=== PATIENT | female | born 1955 | race Caucasian/White ===

== ENCOUNTER → 2017-01-23 | Outpatient (CLI) | payer MEDICARE, MEDICAID ==
[~2017-01-23] MED LIST: ACHD5005 PO; ALN70T PO; ALPR1T PO; CHOLESTEROL MED; FLC100T1 PO; HYDR-2889 PO; HYDR1TAB66 PO; IMITREX; METO25TA2 PO; NYST1POW15 TOP; OXYC-272 PO; PRAV80TA2 PO; TOPROL; [UNRECOGNIZED DRUG - REMARK]
--- NOTE | 2017-01-23 19:30 | Diagnostic Imaging Report ---
INDICATION: Bladder prolapse and pain. EXAMINATION: Pelvic sonography was performed with transabdominal and transvaginal views. FINDINGS: The uterus was surgically absent. Neither ovary could be visualized. There is no free fluid. IMPRESSION: Uterus was surgically absent, not neither ovary was visualized, surgical history is unclear. There is no free fluid. Dictated by: Dictated on workstation # [id number]
== END ==
LOC: RAD 16:09
PROVIDERS: ATTEND Obstetrics & Gynecology
DX: Z01.411 Encounter for gynecological examination (general) (routine) with abnormal findings (principal)
CPT/HCPCS: 76830; 76856

== ENCOUNTER 2017-05-22 14:38 | Emergency (ER) | payer MEDICARE, MEDICAID ==
[~2017-05-22] VITALS: Ht 175.3 cm; Wt 67.6 kg
[~2017-05-22 14:38] MED LIST changes: -METO-270; -OXYB5TAB9
--- OUTSIDE RECORDS SUMMARY | 2017-05-22 14:54 | XMS REPORT ---
Author Author YARI BUI Organization [employer] Address Unknown Phone Unavailable Care Team Providers Care Mainspring Fabrication Supervisor Name Role Phone YARI BUI CP Unavailable Allergies, Adverse Reactions, Alerts Substance Reaction Event Type N.K.D.A. Info Not Available Non Drug Allergy Problems Problem Type Condition Code Onset Dates Condition Status Assessment Dental examination Z01.20 Active Medications Medication Code System Code Instructions Start Date End Date Status Dosage Fosamax [facility] [id number] not defined Procedures Procedure Coding System Code Date Billing Notes on claim CPT-4 EC109 February 21, 2016 AMALGAM-TWO SURFACES PRIMARY/PERM CPT-4 D2150 February 21, 2016 Vital Signs Date/Time: February 21, 2016 Blood Pressure Diastolic 95 mmHg Blood Pressure Systolic 142 mmHg Results No Known Results Summary Purpose [employer] Submission
--- OUTSIDE RECORDS SUMMARY | 2017-05-22 14:54 | XMS REPORT ---
Author Author DORON KU [facility] Address Unknown Care Team Providers Care [employer] Media Program Director Name Role Phone DORON KU Unavailable PROBLEMS Unknown Problems ALLERGIES No Known Allergies SOCIAL HISTORY Never Assessed PLAN OF CARE Activity Details Follow Up prn Reason:prophy VITAL SIGNS Blood pressure systolic 138 mmHg 2016-09-25 Blood pressure diastolic 82 mmHg 2016-09-25 MEDICATIONS Medication Instructions Dosage Frequency Start Date End Date Duration Status Etodolac Active Cephalexin Active Xanax Active Lamisil Active Hydrocodone-Acetaminophen Active Betamethasone Active Pravastatin Sodium Active Fosamax Active Metoprolol Tartrate Active Lortab 5 Active RESULTS No Results PROCEDURES Procedure Date Ordered Result Body Site Dental no charge Sep 25, 2016 IMMUNIZATIONS No Known Immunizations MEDICAL (GENERAL) HISTORY Type Description Date Medical History high blood pressure Medical History chlosteral Medical History migraines
--- OUTSIDE RECORDS SUMMARY | 2017-05-22 14:54 | XMS REPORT ---
Author Author RAMO JIANG Organization [employer] Address Unknown Phone Unavailable Care Team Providers Care Bean Viner Name Role Phone RAMO JIANG CP Unavailable Allergies No Known Allergies Problems Problem Type Condition ICD-9 Code Onset Dates Condition Status Assessment Dental examination V72.2 Active Medications No Known Medications Procedures Procedure Coding System Code Date BITEWINGS - FOUR FILMS CPT-4 D0274 Apr 10, 2015 Periodontal maint procedures CPT-4 D4910 Apr 10, 2015 PERIODIC ORAL EXAMINATION CPT-4 D0120 Apr 10, 2015 Results No Known Results Summary Purpose [employer] Submission
--- OUTSIDE RECORDS SUMMARY | 2017-05-22 14:54 | XMS REPORT ---
Author Author DORON KU [facility] Address Unknown Care Team Providers Care Academic Intern Name Role Phone KINGS DORON Unavailable PROBLEMS Unknown Problems ALLERGIES Substance Reaction Event Type Date Status N.K.D.A. Unknown Non Drug Allergy Jun, Unknown SOCIAL HISTORY No smoking Hx information available PLAN OF CARE Activity Details Follow Up prn Reason:TE #16 or prophy VITAL SIGNS Blood pressure systolic 102 mmHg 2016-07-16 Blood pressure diastolic 72 mmHg 2016-07-16 MEDICATIONS Medication Instructions Dosage Frequency Start Date End Date Duration Status Fosamax Active Xanax Active Hydrocodone-Acetaminophen Active Pravastatin Sodium Active Etodolac Active Lamisil Active Lortab 5 Active Cephalexin Active Metoprolol Tartrate Active Betamethasone Active RESULTS No Results PROCEDURES Procedure Date Ordered Related Diagnosis Body Site LTD ORAL EVALUATION - PROBLEM FOCUS Jul 16, 2016 BITEWINGS - FOUR FILMS Jul 16, 2016 AMALGAM-TWO SURFACES PRIMARY/PERM Jul 16, 2016 IMMUNIZATIONS No Known Immunizations
--- OUTSIDE RECORDS SUMMARY | 2017-05-22 14:54 | XMS REPORT ---
Author Author YARI Jacobs [facility] Address [address] [place] [address] Care Team Providers Care Principal Technical Architect Name Role Phone YARI Jacobs Unavailable PROBLEMS Unknown Problems ALLERGIES No Known Allergies SOCIAL HISTORY No smoking Hx information available PLAN OF CARE VITAL SIGNS MEDICATIONS No Known Medications RESULTS No Results PROCEDURES Procedure Date Ordered Related Diagnosis Body Site Dental Prepay for Future Services Aug 18, 2016 IMMUNIZATIONS No Known Immunizations
--- OUTSIDE RECORDS SUMMARY | 2017-05-22 14:55 | XMS REPORT | Continuity of Care Document ---
Author Author [facility] Organization [facility] Address Unknown Phone Unavailable Allergies Active Description Code Type Severity Reaction Onset Reported/Identified Relationship to Patient Clinical Status Yes No Known Drug Allergies [id number] Drug Allergy Unknown N/ A 05/03/2010 Medications Problems Date Dx Coded Attending Type Code Diagnosis Diagnosed By 06/29/2012 Ot 454.0 LEG VARICOSITY W ULCER 06/29/2012 Ot V58.69 OTH MED,LT,CURRENT USE 04/13/2013 SANTY LEMUS MD Ot 454.0 LEG VARICOSITY W ULCER 11/12/2013 SANTY LEMUS MD Ot 454.0 LEG VARICOSITY W ULCER 03/11/2014 REILLY GONZALEZ DEICER INSPECTOR ELECTRIC Ot 459.81 VENOUS INSUFFICIENCY NOS 03/11/2014 REILLY GONZALEZ DEICER INSPECTOR ELECTRIC Ot 707.9 CHRONIC SKIN ULCER NOS 07/07/2014 SANTY LEMUS MD Ot 454.0 07/29/2014 SANTY LEMUS MD Ot 454.0 LEG VARICOSITY W ULCER 12/21/2014 COLTHARP DO, RUBEN A Ot 117.9 12/21/2014 COLTHARP DO, RUBEN A Ot 305.1 12/21/2014 COLTHARP DO, RUBEN A Ot 457.1 12/26/2014 COLTHARP DO, RUBEN A Ot 117.9 MYCOSES NEC NOS 12/26/2014 COLTHARP DO, RUBEN A Ot 305.1 TOBACCO USE DISORDER 12/26/2014 COLTHARP DO, RUBEN A Ot 457.1 OTHER LYMPHEDEMA 01/24/2017 HERSON HASSAN DO Ot Z01.411 ENCNTR FOR RENTAL COUNTER CLERK EXAM (GENERAL) (ROUTINE ) 01/24/2017 HERSON HASSAN DO Ot Z01.411 ENCNTR FOR RENTAL COUNTER CLERK EXAM (GENERAL) (ROUTINE ) 01/24/2017 HERSON HASSAN DO Ot Z01.411 ENCNTR FOR RENTAL COUNTER CLERK EXAM (GENERAL) (ROUTINE ) 01/24/2017 HERSON HASSAN DO Ot Z01.411 ENCNTR FOR RENTAL COUNTER CLERK EXAM (GENERAL) (ROUTINE ) 02/13/2017 HERSON HASSAN DO Ot Z01.411 ENCNTR FOR RENTAL COUNTER CLERK EXAM (GENERAL) (ROUTINE ) 02/18/2017 HERSON HASSAN DO Ot Z01.411 ENCNTR FOR RENTAL COUNTER CLERK EXAM (GENERAL) (ROUTINE ) Procedures Results Encounters ACCT No. Visit Date/Time Discharge Status Pt. Type Provider Facility Loc./Unit Complaint [id number] 01/23/2017 16:09:00 2016 23:59:59 CLS Outpatient HERSON HASSAN DO [facility] RAD Z01.411 [id number] 12/20/2014 08:17:00 2014 10:30:00 DIS Outpatient VÍCTORJEMIMA RUBEN MORALES [facility] WOUNDCARE [id number] 07/22/2014 10:25:00 2013 11:02:00 DIS Outpatient SANTY LEMUS MD [facility] ULCER [id number] 02/17/2014 13:20:00 2013 15:32:00 DIS Outpatient REILLY GONZALEZ [facility] ULCER [id number] 10/28/2013 09:30:00 2013 14:29:00 DIS Outpatient SANTY LEMUS MD [facility] V[facility] ULCERATIONS LT LEG [id number] 04/08/2013 13:00:00 2012 16:21:00 DIS Outpatient SANTY LEMUS MD [facility] VEN[facility] STATUS ULCER [id number] 01/15/2017 11:40:00 Document Registration [id number] 06/29/2012 11:06:00 Document Registration
[2017-05-22] MEDS ORDERED: OXYB5TAB9 (15:11)
[2017-05-22] MEDS ORDERED: METO-270 (15:11)
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
[2017-05-22 15:42] LABS: BASOPHILS % (AUTO) 0 % (0-10); EOSINOPHILS # (AUTO) 0.7 10^3/uL (0.0-0.3); EOSINOPHILS % (AUTO) 8 % (0-10); LYMPHOCYTES % (AUTO) 11 % (12-44); MEAN CORPUSCULAR HEMOGLOBIN 29 PG (25-34); MEAN CORPUSCULAR HGB CONC 34 G/DL (32-36); MEAN CORPUSCULAR VOLUME 85 FL (80-99); MEAN PLATELET VOLUME 9.2 FL (7.4-10.4); MONOCYTES # (AUTO) 0.4 X 10^3 (0.0-1.0); MONOCYTES % (AUTO) 5 % (0-12); NEUTROPHILS % (AUTO) 77 % (42-75); PLATELET COUNT 244 10^3/uL (130-400); RED BLOOD COUNT 4.11 10^6/uL (4.35-5.85); RED CELL DISTRIBUTION WIDTH 15.3 % (10.0-14.5); WHITE BLOOD COUNT 9.1 10^3/uL (4.3-11.0)
[2017-05-22] MEDS ORDERED: IOHEXOL 350 MG/ML 100 ML (OMNIPAQUE 350) VIAL IV ONE (15:45)
[2017-05-22] MEDS ORDERED: NS 100 ML (IVPB) BAG IV ONE (15:45)
[2017-05-22 15:59] LABS: ANION GAP 14 MMOL/L (5-14); BLOOD UREA NITROGEN 10 MG/DL (7-18); BUN/CREATININE RATIO 13; CARBON DIOXIDE 21 MMOL/L (21-32); CHLORIDE 105 MMOL/L (98-107); CREATININE SERUM 0.75 MG/DL (0.60-1.30); GFR ESTIMATED > 60; GLUCOSE 72 MG/DL (70-105); POTASSIUM 3.4 MMOL/L (3.6-5.0); SODIUM 140 MMOL/L (135-145); hs C REACTIVE PROTEIN 1.28 MG/DL (0.00-0.50)
[2017-05-22 16:04] LABS: ERYTHROCYTE SEDIMENTATION RATE 25 MM/HR (0-30)
[2017-05-22 16:26] VITALS: BP 126/68
--- NOTE | 2017-05-22 16:54 | Diagnostic Imaging Report ---
PROCEDURE: CT head with and without contrast. TECHNIQUE: Multiple contiguous axial images were obtained through the brain before and after the administration of intravenous contrast. INDICATION: Infection in the frontal region with pus oozing out. History of open forehead wound with visible plate. CONTRAST: 80 mL of Omnipaque 350 was administered intravenously. FINDINGS: There is evidence of previous frontal craniotomy. There is an air/fluid level seen deep to the anterior fixating plate in the frontal region from the intracranial structure by the intact appearing dura matter. There is a high density small amount of fluid in the epidural space forming an air/fluid level which might relate to a small hemorrhage or proteinaceous fluid from an infection or epidural abscess based on the provided history of an infected wound anteriorly. There is no evidence of extension of the infection deep to the dura into the subdural space or intracranially. There is encephalomalacia in the frontal lobes, probably related to prior trauma. There is ex vacuo dilatation of the frontal horns of the lateral ventricles, more on the left side. The rest of the brain demonstrates no edema, mass effect, or enhancing lesion. A prevascular space incidentally found in the posterior aspect of the right cerebellar hemisphere is suggested. There is opacification of the mid left ethmoidal air cells. IMPRESSION: There is an air/fluid level deep to the implanted frontal plate in the epidural space, concerning for an epidural abscess. No further extension into the subdural space or acute brain abnormality is seen at this time. The findings were discussed with Mr. Jamey Chance, the physician college sports assistant taking care of the patient in the ER, at the time of dictation. Dictated by: Dictated on workstation # [id number]
[2017-05-22 17:16] LABS: THYROID STIMULATING HORMONE 0.5 UIU/ML (0.35-4.94)
== END 2017-05-22 16:26 | disposition short-term general hospital (02) ==
LOC: EDUNIT# 14:38 → ER 14:41
DX: G06.2 Extradural and subdural abscess, unspecified (principal); L02.811 Cutaneous abscess of head [any part, except face]; Z79.899 Other long term (current) drug therapy; F17.210 Nicotine dependence, cigarettes, uncomplicated
CPT/HCPCS: 36415; 70470; 80048; 84439; 84443; 85025; 85652; 86141

== ENCOUNTER → 2017-05-22 | Outpatient (CLI) | payer MEDICARE, MEDICAID ==
[~2017-05-22] MED LIST changes: +METO-270; +OXYB5TAB9
== END ==
LOC: WOUNDCARE 13:09
PROVIDERS: ATTEND Nurse Practitioner
DX: L98.499 Non-pressure chronic ulcer of skin of other sites with unspecified severity (principal)
CPT/HCPCS: 99214

== ENCOUNTER → 2017-06-12 | Outpatient (CLI) | payer MEDICARE, MEDICAID ==
[~2017-06-12] MED LIST changes: +METO-270; +OXYB5TAB9
== END ==
LOC: LABNPT 14:26
PROVIDERS: ATTEND Family Medicine
DX: L03.90 Cellulitis, unspecified (principal)
CPT/HCPCS: 80202

== ENCOUNTER → 2017-06-17 | Outpatient (CLI) | payer MEDICARE, MEDICAID ==
[2017-06-17 10:29] LABS: BASOPHILS % (AUTO) 0 % (0-10); EOSINOPHILS # (AUTO) 0.4 10^3/uL (0.0-0.3); EOSINOPHILS % (AUTO) 9 % (0-10); LYMPHOCYTES # (AUTO) 0.7 X 10^3 (1.0-4.0); LYMPHOCYTES % (AUTO) 15 % (12-44); MEAN CORPUSCULAR HEMOGLOBIN 29 PG (25-34); MEAN CORPUSCULAR HGB CONC 32 G/DL (32-36); MEAN CORPUSCULAR VOLUME 90 FL (80-99); MEAN PLATELET VOLUME 9.9 FL (7.4-10.4); MONOCYTES # (AUTO) 0.3 X 10^3 (0.0-1.0); MONOCYTES % (AUTO) 6 % (0-12); NEUTROPHILS # (AUTO) 3.2 X 10^3 (1.8-7.8); NEUTROPHILS % (AUTO) 70 % (42-75); PLATELET COUNT 101 10^3/uL (130-400); RED BLOOD COUNT 3.76 10^6/uL (4.35-5.85); RED CELL DISTRIBUTION WIDTH 15.6 % (10.0-14.5); WHITE BLOOD COUNT 4.6 10^3/uL (4.3-11.0)
[2017-06-17 10:46] LABS: ANION GAP 8 MMOL/L (5-14); BLOOD UREA NITROGEN 18 MG/DL (7-18); BUN/CREATININE RATIO 22; CALCIUM 9.1 MG/DL (8.5-10.1); CARBON DIOXIDE 27 MMOL/L (21-32); CHLORIDE 107 MMOL/L (98-107); CREATININE SERUM 0.82 MG/DL (0.60-1.30); GFR ESTIMATED > 60; GLUCOSE 99 MG/DL (70-105); POTASSIUM 4.6 MMOL/L (3.6-5.0); SODIUM 142 MMOL/L (135-145)
== END ==
LOC: LABNPT 10:23
PROVIDERS: ATTEND Family Medicine
DX: L03.90 Cellulitis, unspecified (principal); Z87.828 Personal history of other (healed) physical injury and trauma
CPT/HCPCS: 80048; 80202; 85025

== ENCOUNTER → 2017-06-24 | Outpatient (CLI) | payer MEDICARE, MEDICAID ==
[2017-06-24 10:11] LABS: BASOPHILS % (AUTO) 1 % (0-10); EOSINOPHILS # (AUTO) 0.4 10^3/uL (0.0-0.3); EOSINOPHILS % (AUTO) 8 % (0-10); LYMPHOCYTES # (AUTO) 0.8 X 10^3 (1.0-4.0); LYMPHOCYTES % (AUTO) 15 % (12-44); MEAN CORPUSCULAR HEMOGLOBIN 30 PG (25-34); MEAN CORPUSCULAR HGB CONC 33 G/DL (32-36); MEAN CORPUSCULAR VOLUME 89 FL (80-99); MEAN PLATELET VOLUME 9.3 FL (7.4-10.4); MONOCYTES # (AUTO) 0.4 X 10^3 (0.0-1.0); MONOCYTES % (AUTO) 7 % (0-12); NEUTROPHILS # (AUTO) 3.8 X 10^3 (1.8-7.8); NEUTROPHILS % (AUTO) 70 % (42-75); PLATELET COUNT 159 10^3/uL (130-400); RED BLOOD COUNT 3.91 10^6/uL (4.35-5.85); RED CELL DISTRIBUTION WIDTH 15.1 % (10.0-14.5); WHITE BLOOD COUNT 5.5 10^3/uL (4.3-11.0)
[2017-06-24 10:27] LABS: ANION GAP 11 MMOL/L (5-14); BLOOD UREA NITROGEN 14 MG/DL (7-18); BUN/CREATININE RATIO 16; CALCIUM 9.1 MG/DL (8.5-10.1); CARBON DIOXIDE 24 MMOL/L (21-32); CHLORIDE 108 MMOL/L (98-107); GFR ESTIMATED > 60; GLUCOSE 118 MG/DL (70-105); POTASSIUM 4.7 MMOL/L (3.6-5.0); SODIUM 143 MMOL/L (135-145)
== END ==
LOC: LABNPT 10:01
PROVIDERS: ATTEND Family Medicine
DX: I10 Essential (primary) hypertension (principal); L03.90 Cellulitis, unspecified
CPT/HCPCS: 80048; 80202; 85025